=== PATIENT | male | born 1975 | race Caucasian/White ===

== ENCOUNTER 2021-07-24 10:02 | Outpatient (CLI) | payer OTHER, SELFPAY ==
[2021-07-24 10:24] LABS: Hematocrit 48.1 % (42.0-52.0); Hemoglobin 15.9 g/dL (14.0-18.0); Mean Corpuscular HGB Conc 33.1 g/dl (32-36); Mean Corpuscular Hemoglobin 31.5 pg (26-34); Mean Corpuscular Volume 95.2 fl (80-100); Mean Platelet Volume 8.4 fl (7.4-10.4); Platelet Count Result 308 k/mm3 (150-375); Red Blood Count 5.05 M/mm3 (4.6-6.20); Red Cell Distribution Width 13.3 % (11.5-14.5); White Blood Count 6.7 K/mm3 (4.5-10.0)
[2021-07-24 10:31] LABS: Add Urine Microscopic? YES; Appearance Urine Clear (Clear); Bilirubin Urine 2+ (Negative); Blood Urine Negative (Negative); Color Urine Yellow (Yellow); Glucose Urine UA Negative (Negative); Ketones Urine Negative (Negative); Leukocyte Esterase Ur Negative LEU/UL (Negative); Mucus Urine Few /lpf; Nitrate Urine Negative (Negative); Protein Urine 1+ mg/dL (Negative); Specific Grav Ur 1.021 (1.001-1.035); WBC Urine 0-3 /hpf
[2021-07-24 10:36] LABS: Alanine Aminotransferase 17 U/L (4-50); Albumin Level 4.1 g/dL (3.5-5.1); Alkaline Phosphatase 49 U/L (38-126); Anion Gap 8 mmol/L (8-16); Aspartate Amino Transferase 18 U/L (17-59); Bilirubin,Total 0.4 mg/dL (0.2-1.3); Blood Urea Nitrogen 16 mg/dL (9-20); CRP 0.7 mg/dL (<1.0); Calcium 9.3 mg/dL (8.4-10.2); Carbon Dioxide 28 mmol/L (22-30); Chloride 105 mmol/L (98-107); Estimated Glomerular Filt Rate > 60; Glucose 103 mg/dL (65-110); Potassium 4.3 mmol/L (3.4-5.0); Sodium 141 mmol/L (137-145)
[2021-07-24 10:51] LABS: Erythrocyte Sedimentation Rate 18 mm/hr (0-20)
[2021-07-24 11:53] LABS: Hepatitis B Surface Antigen Negative (Negative)
[2021-07-24 12:10] LABS: Hepatitis B Surface Anti Res Negative
[2021-07-24 12:16] LABS: Hepatitis C Virus Antibody Negative (Negative)
[2021-07-27 22:08] LABS: NIL 0.02 IU/mL; Quantiferon TB Plus, 1T NEGATIVE (NEGATIVE); TB1-NIL 0.01 IU/mL
== END 2021-07-24 10:03 | disposition home or self-care (01) ==
PROVIDERS: PCP Family Medicine; Visit Provider Internal Medicine
DX: Z11.59 Encounter for screening for other viral diseases (principal); M05.79 Rheumatoid arthritis with rheumatoid factor of multiple sites without organ or systems involvement; M19.90 Unspecified osteoarthritis, unspecified site
CPT/HCPCS: 36415; 80053; 81001; 85027; 85652; 86140; 86480; 86706; 86803; 87340

== ENCOUNTER 2021-10-20 10:47 | Outpatient (CLI) | payer OTHER, SELFPAY ==
--- NOTE | ~2021-10-20 | XR_ITS ---
EXAMINATION: XR shoulder RT min 2V EXAM DATE: 10/20/2021 11:28 INDICATION: M06.9 - Rheumatoid arthritis, unspecified, bilateral shoulder pain, left shoulder worse. TECHNIQUE: The following right shoulder projections obtained: frontal projection with internal rotati on, frontal projection with external rotation, Grashey, and scapular Y view (4+ views). Correlation i s made to contralateral shoulder same date. FINDINGS: No evidence of right shoulder rotator cuff calcific tendinosis. There is mild glenohumera l joint, mild acromioclavicular joint primary osteoarthritis. There are no acute fractures or disloca tions identified. There is no subcutaneous gas. The soft tissue is unremarkable. There are no rad iopaque foreign bodies. IMPRESSION: Mild right shoulder osteoarthritis. Reviewed, dictated and finalized at location A. TAL SALES DIRECTOR
--- NOTE | ~2021-10-20 | XR_ITS ---
EXAMINATION: XR shoulder LT min 2V EXAM DATE: 10/20/2021 11:28 INDICATION: M06.9 - Rheumatoid arthritis, unspecified, left shoulder pain. TECHNIQUE: The following left shoulder projections obtained: frontal projection with internal rotatio n, frontal projection with external rotation, Grashey, and scapular Y view (4+ views). Correlation is made to contralateral shoulder same date. FINDINGS: No evidence of left shoulder rotator cuff calcific tendinosis. There is mild glenohumera l joint, mild acromioclavicular joint primary osteoarthritis, symmetric to the contralateral side. Th ere are no acute fractures or dislocations identified. There is no subcutaneous gas. The soft tissu e is unremarkable. There are no radiopaque foreign bodies. IMPRESSION: Mild left shoulder osteoarthritis. Reviewed, dictated and finalized at location A. F TECHNICIAN X RAY
--- NOTE | ~2021-10-20 | XR_ITS ---
EXAMINATION: XR wrist LT min 3V, XR wrist RT min 3V DATE: 10/20/2021 11:28 INDICATION: Rheumatoid arthritis with pain at the first metacarpals. TECHNIQUE: 1. Posteroanterior, ulnar deviation, oblique, and lateral views of the left wrist were obtained. 2. Posteroanterior, ulnar deviation, oblique, and lateral views of the right wrist were obtained. COMPARISON: none FINDINGS: 2 mm ulnar positive variance on the left and 1-2 mm ulnar positive variance on the right . Alignment is otherwise normal at the bilateral wrists. No fractures. Joint spaces are normal. Lucency with thin sclerotic margins at the proximal pole of the capitate likely an intraosseous cyst. No cortical eros ions to suggest inflammatory arthritis. IMPRESSION: 1. Bilateral mild ulnar positive variance. Otherwise unremarkable bilateral wrist radiographs with no joint space narrowing or cortical erosions to suggest an inflammatory arthritis such as rheumatoid. Reviewed, dictated and finalized at location B. R BROKER IMPRESSION: 1. Bilateral mild ulnar positive variance. Otherwise unremarkable bilateral wri st radiographs with no joint space narrowing or cortical erosions to suggest an inflammatory arthritis such as rheumatoid.
== END 2021-10-20 10:48 | disposition home or self-care (01) ==
LOC: ANHIMG 11:02
PROVIDERS: PCP Family Medicine; Visit Provider Internal Medicine
DX: M06.9 Rheumatoid arthritis, unspecified (principal); M05.79 Rheumatoid arthritis with rheumatoid factor of multiple sites without organ or systems involvement; M19.011 Primary osteoarthritis, right shoulder; M19.012 Primary osteoarthritis, left shoulder
CPT/HCPCS: 73030; 73110

== ENCOUNTER 2021-11-27 10:35 | Outpatient (CLI) | payer OTHER, SELFPAY ==
--- NOTE | ~2021-11-27 | MR_ITS ---
EXAMINATION: MR shoulder LT wo con DATE: 11/27/2021 11:23 INDICATION: Diffuse left shoulder pain and decreased range of motion post injury one year prior TECHNIQUE: Magnetic resonance imaging (MRI) of the left shoulder was performed without intravenous co ntrast. Sequences included axial and repeated axial PD-weighted FS FSE, coronal oblique PD-weighted F S FSE and sagittal oblique T2-weighted FS FSE. The patient terminated the study due to pain prior to obtaining the sagittal T1 and coronal T2-weighted sequences. COMPARISON: Left shoulder radiographs dated 10/20/2021 FINDINGS: Limited study due to incomplete study as well as some motion artifact on the sagittal sequence. Coracoacromial arch: The acromion undersurface is curved in morphology (type II). The coracoacromial ligament is normal. M ild acromioclavicular osteoarthritis. Rotator cuff: Moderate with supraspinatus tendinopathy and mild infraspinatus and subscapularis tendinopathy withou t discrete tear. The teres minor tendon is normal. Normal rotator cuff muscle bulk and signal. Biceps tendon, glenoid labrum and glenohumeral cartilage: Long head of the biceps tendon is normal. Glenoid labrum is normal. Glenohumeral cartilage is normal. Fluid: Prominent synovitis bulging the long head biceps tendon sheath consistent with bicipital tenosynoviti s. There is also a small glenohumeral joint effusion with additional synovitis at the posterior, axil jeff and subcoracoid recesses. Finally there is a small amount of fluid with minimal synovitis at the subacromial/subdeltoid bursa consistent with mild bursitis. No loose osteochondral bodies. Bones: Prominent increased fluid signal at the posterior aspect of the humeral head near the posterior facet of the greater tuberosity but without evident Hill-Sachs fracture on the prior radiographs. Marrow s ignal is otherwise normal with no evident fracture. IMPRESSION: 1. Moderate supraspinatus tendinopathy and mild infraspinatus and subscapularis tendinopathy without discrete tear. 2. Nonspecific inflammatory changes with fluid and prominent synovitis at the glenohumeral joint spac e, the long head biceps tendon sheath as well as the subacromial/subdeltoid bursa. This would be cons istent with a previous reported history of rheumatoid arthritis. Reviewed, dictated and finalized at location A. PRODUCTION DESIGNER IMPRESSION: 1. Moderate supraspinatus tendinopathy and mild infraspinatus and subscapularis tendinopathy without discrete tear. 2. Nonspecific inflammatory changes with fluid and prominent synovitis at the g lenohumeral joint space, the long head biceps tendon sheath as well as the suba cromial/subdeltoid bursa. This would be consistent with a previous reported his tory of rheumatoid arthritis.
== END 2021-11-27 10:36 | disposition home or self-care (01) ==
LOC: ANHIMG 10:36
PROVIDERS: PCP Family Medicine; Visit Provider Internal Medicine
DX: M25.512 Pain in left shoulder (principal)
CPT/HCPCS: 73221

== ENCOUNTER 2021-12-01 10:13 | Outpatient (CLI) | payer OTHER, SELFPAY ==
[2021-12-01 10:36] LABS: Hematocrit 49.7 % (42.0-52.0); Hemoglobin 16.8 g/dL (14.0-18.0); Mean Corpuscular HGB Conc 33.8 g/dl (32-36); Mean Corpuscular Hemoglobin 31.2 pg (26-34); Mean Corpuscular Volume 92.4 fl (80-100); Mean Platelet Volume 8.4 fl (7.4-10.4); Platelet Count Result 309 k/mm3 (150-375); Red Blood Count 5.38 M/mm3 (4.6-6.20); Red Cell Distribution Width 12.8 % (11.5-14.5); White Blood Count 9.1 K/mm3 (4.5-10.0)
[2021-12-01 10:49] LABS: Alanine Aminotransferase 25 U/L (4-50); Albumin Level 4.6 g/dL (3.5-5.1); Alkaline Phosphatase 53 U/L (38-126); Anion Gap 11 mmol/L (8-16); Aspartate Amino Transferase 22 U/L (17-59); Bilirubin,Total 0.3 mg/dL (0.2-1.3); Blood Urea Nitrogen 20 mg/dL (9-20); CRP 0.8 mg/dL (<1.0); Calcium 9.5 mg/dL (8.4-10.2); Carbon Dioxide 27 mmol/L (22-30); Chloride 104 mmol/L (98-107); Estimated Glomerular Filt Rate > 60; Glucose 101 mg/dL (65-110); Potassium 4.5 mmol/L (3.4-5.0); Sodium 142 mmol/L (137-145)
[2021-12-01 11:54] LABS: Erythrocyte Sedimentation Rate 9 mm/hr (0-20)
== END 2021-12-01 10:14 | disposition home or self-care (01) ==
LOC: ANHLAB 10:18
PROVIDERS: PCP Family Medicine; Visit Provider Internal Medicine
DX: M05.79 Rheumatoid arthritis with rheumatoid factor of multiple sites without organ or systems involvement (principal); M19.90 Unspecified osteoarthritis, unspecified site
CPT/HCPCS: 36415; 80053; 84550; 85027; 85652; 86140

== ENCOUNTER 2022-01-04 09:51 | Outpatient (CLI) | payer OTHER, SELFPAY ==
--- NOTE | ~2022-01-04 | MR_ITS ---
EXAMINATION: MR hand RT wo/w con DATE: 01/04/2022 11:24 INDICATION: Rheumatoid arthritis TECHNIQUE: Magnetic resonance imaging (MRI) of the right hand was performed without and with 15 mL Mu ltihance intravenous contrast to include the metacarpals and digits. Sequences included axial, sagitt al and coronal T1-weighted FSE and T2-weighted FS FSE, axial T2-weighted FS FSE and postcontrast axia l and sagittal T2-weighted FS FSE . COMPARISON: Right wrist radiographs dated 10/20/2021 FINDINGS: Bone alignment is normal. No fracture or pathologic marrow replacing process. Large likely chronic er osion at the proximal pole of the capitate which is T2 hyperintense with diffuse internal enhancement but low signal intensity peripheral sclerotic wall. Additional smaller erosions with mild internal e nhancement at the radial aspect of the heads of the second, third and fifth metacarpals which would b e consistent with provided history of rheumatoid arthritis. Mild osteoarthritis with tiny marginal os teophytes at the triscaphe and first carpal metacarpal joints. Remaining joint spaces appear relative ly preserved. No joint effusions or enhancing synovitis. There is diffuse enhancing synovitis along t he flexor digitorum longus and brevis tendons as well as the flexor pollicis longus longus tendon bot h above and below the level of the of the carpal tunnel also likely related to rheumatoid arthritis. The tendinopathy of the of the flexor digitorum profundus and superficialis tendons to the third digi t, the flexor digitorum profundus tendon to the fourth digit which also demonstrates longitudinal spl it tearing and at the level of the bases of the metacarpals as well as of the flexor pollicis longus tendon also with likely longitudinal split tearing at the level of the distal carpal row. The collate ral ligament complexes at the metacarpophalangeal and interphalangeal joints remain normal. IMPRESSION: 1. Erosions at the capitate and heads of the second, third and fifth metacarpals and extensive enhanc ing tenosynovitis along the flexor tendons of the hand which would be consistent with the provided hi story of rheumatoid arthritis. 2. Tendinopathy to some of the flexor tendons to the first, third and fourth digits with split tearin g along the flexor pollicis longus longus and more prominently to the flexor digitorum profundus tend ons of the fourth digit. 3. Mild osteoarthritis at the triscaphe and first carpal metacarpal joints. Reviewed, dictated and finalized at location A. NEYMAN WELDER IMPRESSION: 1. Erosions at the capitate and heads of the second, third and fifth metacarpal s and extensive enhancing tenosynovitis along the flexor tendons of the hand wh ich would be consistent with the provided history of rheumatoid arthritis. 2. Tendinopathy to some of the flexor tendons to the first, third and fourth di gits with split tearing along the flexor pollicis longus longus and more promin ently to the flexor digitorum profundus tendons of the fourth digit. 3. Mild osteoarthritis at the triscaphe and first carpal metacarpal joints.
[2022-01-04 11:26] LABS: Estimated Glomerular Filt Rate > 60
== END 2022-01-04 09:52 | disposition home or self-care (01) ==
LOC: ANHIMG 09:55
PROVIDERS: PCP Family Medicine; Visit Provider Internal Medicine
DX: M06.841 Other specified rheumatoid arthritis, right hand (principal); M65.841 Other synovitis and tenosynovitis, right hand; M18.11 Unilateral primary osteoarthritis of first carpometacarpal joint, right hand
CPT/HCPCS: 73220; A9577

== ENCOUNTER 2022-03-05 10:48 | Outpatient (CLI) | payer OTHER, SELFPAY ==
[2022-03-05 11:18] LABS: Hematocrit 46.8 % (42.0-52.0); Hemoglobin 15.4 g/dL (14.0-18.0); Mean Corpuscular HGB Conc 32.9 g/dl (32-36); Mean Corpuscular Hemoglobin 31.3 pg (26-34); Mean Corpuscular Volume 95.1 fl (80-100); Mean Platelet Volume 8.7 fl (7.4-10.4); Platelet Count Result 321 k/mm3 (150-375); Red Blood Count 4.92 M/mm3 (4.6-6.20); Red Cell Distribution Width 13.1 % (11.5-14.5); White Blood Count 10.4 K/mm3 (4.5-10.0)
[2022-03-05 11:32] LABS: Alanine Aminotransferase 23 U/L (4-50); Albumin Level 4.1 g/dL (3.5-5.1); Alkaline Phosphatase 57 U/L (38-126); Anion Gap 4 mmol/L (8-16); Aspartate Amino Transferase 22 U/L (17-59); Bilirubin,Total 0.1 mg/dL (0.2-1.3); Blood Urea Nitrogen 13 mg/dL (9-20); CRP 2.4 mg/dL (<1.0); Calcium 8.8 mg/dL (8.4-10.2); Carbon Dioxide 31 mmol/L (22-30); Chloride 107 mmol/L (98-107); Estimated Glomerular Filt Rate > 60; Glucose 97 mg/dL (65-110); Potassium 4.2 mmol/L (3.4-5.0); Sodium 142 mmol/L (137-145)
[2022-03-05 12:14] LABS: Erythrocyte Sedimentation Rate 28 mm/hr (0-20)
== END 2022-03-05 10:49 | disposition home or self-care (01) ==
LOC: ANHLAB 10:49
PROVIDERS: PCP Family Medicine; Visit Provider Internal Medicine
DX: M05.79 Rheumatoid arthritis with rheumatoid factor of multiple sites without organ or systems involvement (principal); M19.90 Unspecified osteoarthritis, unspecified site
CPT/HCPCS: 36415; 80053; 85027; 85652; 86140

== ENCOUNTER 2022-06-07 09:38 | Outpatient (CLI) | payer OTHER, SELFPAY ==
[2022-06-07 10:43] LABS: Hematocrit 45.8 % (42.0-52.0); Hemoglobin 14.9 g/dL (14.0-18.0); Mean Corpuscular HGB Conc 32.5 g/dl (32-36); Mean Corpuscular Hemoglobin 30.3 pg (26-34); Mean Corpuscular Volume 93.3 fl (80-100); Platelet Count Result 359 k/mm3 (150-375); Red Blood Count 4.91 M/mm3 (4.6-6.20); White Blood Count 7.2 K/mm3 (4.5-10.0)
[2022-06-07 11:02] LABS: Appearance Urine Clear (Clear); Bilirubin Urine Negative (Negative); Blood Urine Negative (Negative); Color Urine Yellow (Yellow); Glucose Urine UA Negative (Negative); Ketones Urine Negative (Negative); Leukocyte Esterase Ur Negative LEU/UL (Negative); Nitrate Urine Negative (Negative); Urobilinogen Urine 0.2 mg/dL (<2.0); pH Urine 7.5 (5.0-9.0)
[2022-06-07 11:10] LABS: Alanine Aminotransferase 23 U/L (6-50); Albumin Level 4.4 g/dL (3.5-5.1); Alkaline Phosphatase 58 U/L (38-126); Anion Gap 11 mmol/L (8-16); Aspartate Amino Transferase 29 U/L (17-59); Bilirubin,Total 0.4 mg/dL (0.2-1.3); Blood Urea Nitrogen 12 mg/dL (9-20); CRP 0.6 mg/dL (<1.0); Calcium 9.4 mg/dL (8.4-10.2); Carbon Dioxide 26 mmol/L (22-30); Chloride 104 mmol/L (98-107); Estimated Glomerular Filt Rate > 60; Glucose 97 mg/dL (65-110); Potassium 3.9 mmol/L (3.4-5.0); Sodium 141 mmol/L (137-145)
[2022-06-07 11:11] LABS: Mucus Urine Rare /lpf; RBC Urine 0-2 /hpf (0-2); Squamous Epithelial Cell Urine Rare /hpf (Few); WBC Urine 0-3 /hpf
[2022-06-07 11:58] LABS: Add Urine Microscopic? YES
[2022-06-07 12:00] LABS: Protein Urine 1+ mg/dL (Negative)
[2022-06-07 12:43] LABS: Erythrocyte Sedimentation Rate 18 mm/hr (0-20)
== END 2022-06-07 09:39 | disposition home or self-care (01) ==
LOC: ANHLAB 09:39
PROVIDERS: PCP Family Medicine; Visit Provider Internal Medicine
DX: M05.79 Rheumatoid arthritis with rheumatoid factor of multiple sites without organ or systems involvement (principal); M19.90 Unspecified osteoarthritis, unspecified site
CPT/HCPCS: 36415; 80053; 81001; 85027; 85652; 86140

== ENCOUNTER 2022-12-17 15:43 | Outpatient (CLI) | payer OTHER, SELFPAY ==
[2022-12-17 16:47] LABS: Hematocrit 46.1 % (42.0-52.0); Hemoglobin 15.4 g/dL (14.0-18.0); Mean Corpuscular HGB Conc 33.4 g/dl (32-36); Mean Corpuscular Hemoglobin 30.7 pg (26-34); Mean Platelet Volume 9.5 fl (7.4-10.4); Platelet Count Result 377 k/mm3 (150-375); Red Blood Count 5.01 M/mm3 (4.6-6.20); Red Cell Distribution Width 13.1 % (11.5-14.5); White Blood Count 6.4 K/mm3 (4.5-10.0)
[2022-12-17 16:49] LABS: Appearance Urine Clear (Clear); Bilirubin Urine Negative (Negative); Blood Urine Negative (Negative); Color Urine Yellow (Yellow); Glucose Urine UA Negative (Negative); Ketones Urine 1+ mg/dL (Negative); Leukocyte Esterase Ur Negative LEU/UL (Negative); Nitrate Urine Negative (Negative); Protein Urine Negative (Negative); Specific Grav Ur >= 1.030 (1.001-1.035); Urobilinogen Urine 0.2 mg/dL (<2.0)
[2022-12-17 16:54] LABS: Bacteria Urine Trace /hpf; Mucus Urine Rare /lpf; RBC Urine 0-2 /hpf (0-2); Squamous Epithelial Cell Urine Rare /hpf (Few); WBC Urine 0-3 /hpf
[2022-12-17 16:55] LABS: Add Urine Microscopic? YES
[2022-12-17 17:00] LABS: Alanine Aminotransferase 33 U/L (6-50); Albumin Level 4.6 g/dL (3.5-5.1); Alkaline Phosphatase 54 U/L (38-126); Anion Gap 8 mmol/L (8-16); Aspartate Amino Transferase 30 U/L (17-59); Bilirubin,Total 0.5 mg/dL (0.2-1.3); Blood Urea Nitrogen 13 mg/dL (9-20); CRP < 0.5 mg/dL (<1.0); Calcium 9.1 mg/dL (8.4-10.2); Carbon Dioxide 24 mmol/L (22-30); Chloride 105 mmol/L (98-107); Estimated Glomerular Filt Rate > 60; Glucose 84 mg/dL (65-110); Potassium 3.6 mmol/L (3.4-5.0); Sodium 137 mmol/L (137-145)
[2022-12-17 17:40] LABS: Erythrocyte Sedimentation Rate 16 mm/hr (0-20)
== END 2022-12-17 15:44 | disposition home or self-care (01) ==
LOC: ANHLAB 15:46
PROVIDERS: PCP Family Medicine; Visit Provider Internal Medicine
DX: M05.79 Rheumatoid arthritis with rheumatoid factor of multiple sites without organ or systems involvement (principal); M19.90 Unspecified osteoarthritis, unspecified site
CPT/HCPCS: 36415; 80053; 81001; 85027; 85652; 86140

== ENCOUNTER 2023-03-07 10:30 | Outpatient (CLI) | payer OTHER, SELFPAY ==
[2023-03-07 10:57] LABS: Basophils Percent Auto 0.5 % (0.2-1.2); Eosinophils Absolute Auto 0.4 K/mm3 (0-0.3); Eosinophils Percent Auto 6.4 % (0-4.4); Hematocrit 46.8 % (42.0-52.0); Hemoglobin 15.5 g/dL (14.0-18.0); Immature Granulocyte Absolute 0.02 K/mm3 (0.00-0.031); Immature Granulocyte Percent A 0.3 % (0-0.5); Lymphocytes Absolute Auto 1.08 K/mm3 (0.9-3.2); Lymphocytes Percent Auto 18.8 % (18.3-44.2); Mean Corpuscular HGB Conc 33.1 g/dl (32-36); Mean Corpuscular Hemoglobin 30.5 pg (26-34); Mean Corpuscular Volume 91.9 fl (80-100); Monocytes Absolute Auto 0.4 K/mm3 (0.1-0.6); Monocytes Percent Auto 6.4 % (2.6-8.5); Neutrophils Absolute Auto 3.9 K/mm3 (1.3-6.7); Neutrophils Percent Auto 67.6 % (45.5-73.1); Platelet Count Result 315 k/mm3 (150-375); Red Blood Count 5.09 M/mm3 (4.6-6.20); Red Cell Distribution Width 13.1 % (11.5-14.5); White Blood Count 5.8 K/mm3 (4.5-10.0)
[2023-03-07 11:04] LABS: Appearance Urine Clear (Clear); Bilirubin Urine Negative (Negative); Blood Urine Negative (Negative); Color Urine Yellow (Yellow); Glucose Urine UA Negative (Negative); Ketones Urine Negative (Negative); Leukocyte Esterase Ur Negative LEU/UL (Negative); Nitrate Urine Negative (Negative); Protein Urine Negative (Negative); Specific Grav Ur 1.006 (1.001-1.035); Urobilinogen Urine 0.2 mg/dL (<2.0); pH Urine 5.5 (5.0-9.0)
[2023-03-07 11:08] LABS: Add Urine Microscopic? NO
[2023-03-07 11:11] LABS: Alanine Aminotransferase 40 U/L (6-50); Albumin Level 4.4 g/dL (3.5-5.1); Alkaline Phosphatase 44 U/L (38-126); Anion Gap 5 mmol/L (8-16); Aspartate Amino Transferase 34 U/L (17-59); Bilirubin,Total 0.5 mg/dL (0.2-1.3); Blood Urea Nitrogen 10 mg/dL (9-20); CRP < 0.5 mg/dL (<1.0); Calcium 8.8 mg/dL (8.4-10.2); Carbon Dioxide 27 mmol/L (22-30); Chloride 107 mmol/L (98-107); Estimated Glomerular Filt Rate > 60; Glucose 111 mg/dL (65-110); Potassium 4.1 mmol/L (3.4-5.0); Sodium 139 mmol/L (137-145)
[2023-03-07 11:13] LABS: Complement C3 137 mg/dL (88-165)
[2023-03-07 11:13] LABS: Creatinine Urine 53.9 mg/dL; Total Protein Urine Random 10 mg/dL; Ur Ttl Prot Creatinine Ratio 0.19 mg/mg (0-0.20)
[2023-03-07 11:26] LABS: Erythrocyte Sedimentation Rate 22 mm/hr (0-20)
== END 2023-03-07 10:31 | disposition home or self-care (01) ==
LOC: ANHLAB 10:36
PROVIDERS: PCP Nurse Practitioner Family; Visit Provider Internal Medicine
DX: M05.79 Rheumatoid arthritis with rheumatoid factor of multiple sites without organ or systems involvement (principal); M19.90 Unspecified osteoarthritis, unspecified site
CPT/HCPCS: 36415; 80053; 81003; 82570; 84156; 85025; 85652; 86140; 86160

== ENCOUNTER 2023-07-11 09:52 | Outpatient (CLI) | payer OTHER, SELFPAY ==
[2023-07-11 10:24] LABS: Hemoglobin 14.2 g/dL (14.0-18.0); Mean Corpuscular Hemoglobin 30.1 pg (26-34); Mean Corpuscular Volume 91.3 fl (80-100); Mean Platelet Volume 9.3 fl (7.4-10.4); Platelet Count Result 272 k/mm3 (150-375); Red Blood Count 4.71 M/mm3 (4.6-6.20); Red Cell Distribution Width 12.6 % (11.5-14.5); White Blood Count 4.9 K/mm3 (4.5-10.0)
[2023-07-11 10:24] LABS: Appearance Urine Clear (Clear); Bilirubin Urine Negative (Negative); Blood Urine Negative (Negative); Color Urine Yellow (Yellow); Glucose Urine UA Negative (Negative); Ketones Urine Negative (Negative); Leukocyte Esterase Ur Negative LEU/UL (Negative); Nitrate Urine Negative (Negative); Protein Urine Negative (Negative); Urobilinogen Urine 0.2 mg/dL (<2.0); pH Urine 5.5 (5.0-9.0)
[2023-07-11 10:41] LABS: Add Urine Microscopic? NO
[2023-07-11 10:48] LABS: Alanine Aminotransferase 46 U/L (6-50); Albumin Level 4.3 g/dL (3.5-5.1); Alkaline Phosphatase 48 U/L (38-126); Anion Gap 5 mmol/L (8-16); Aspartate Amino Transferase 38 U/L (17-59); Bilirubin,Total 0.5 mg/dL (0.2-1.3); Blood Urea Nitrogen 18 mg/dL (9-20); CRP < 0.5 mg/dL (<1.0); Calcium 9.2 mg/dL (8.4-10.2); Carbon Dioxide 27 mmol/L (22-30); Chloride 106 mmol/L (98-107); Estimated Glomerular Filt Rate > 60; Glucose 98 mg/dL (65-110); Potassium 4.4 mmol/L (3.4-5.0); Sodium 138 mmol/L (137-145)
[2023-07-11 10:54] LABS: Erythrocyte Sedimentation Rate 35 mm/hr (0-20)
== END 2023-07-11 09:53 | disposition home or self-care (01) ==
PROVIDERS: PCP Nurse Practitioner Family; Visit Provider Internal Medicine
DX: M05.79 Rheumatoid arthritis with rheumatoid factor of multiple sites without organ or systems involvement (principal); M19.90 Unspecified osteoarthritis, unspecified site
CPT/HCPCS: 36415; 80053; 81003; 85027; 85652; 86140

== ENCOUNTER 2023-10-21 10:11 | Outpatient (CLI) | payer OTHER, SELFPAY ==
[2023-10-21 10:41] LABS: Hematocrit 44.7 % (42.0-52.0); Hemoglobin 14.3 g/dL (14.0-18.0); Mean Corpuscular Volume 93.7 fl (80-100); Mean Platelet Volume 9.2 fl (7.4-10.4); Platelet Count Result 336 k/mm3 (150-375); Red Blood Count 4.77 M/mm3 (4.6-6.20); Red Cell Distribution Width 13.2 % (11.5-14.5); White Blood Count 5.7 K/mm3 (4.5-10.0)
[2023-10-21 10:43] LABS: Appearance Urine Clear (Clear); Bilirubin Urine Negative (Negative); Blood Urine Negative (Negative); Color Urine Yellow (Yellow); Glucose Urine UA Negative (Negative); Ketones Urine Negative (Negative); Leukocyte Esterase Ur Negative LEU/UL (Negative); Nitrate Urine Negative (Negative); Protein Urine Negative (Negative); Specific Grav Ur 1.016 (1.001-1.035); Urobilinogen Urine 0.2 mg/dL (<2.0); pH Urine 5.5 (5.0-9.0)
[2023-10-21 10:47] LABS: Add Urine Microscopic? NO
[2023-10-21 10:55] LABS: Alanine Aminotransferase 53 U/L (6-50); Albumin Level 4.1 g/dL (3.5-5.1); Alkaline Phosphatase 46 U/L (38-126); Anion Gap 6 mmol/L (8-16); Aspartate Amino Transferase 45 U/L (17-59); Bilirubin,Total 0.5 mg/dL (0.2-1.3); Blood Urea Nitrogen 13 mg/dL (9-20); CRP < 0.5 mg/dL (<1.0); Calcium 8.9 mg/dL (8.4-10.2); Carbon Dioxide 26 mmol/L (22-30); Chloride 108 mmol/L (98-107); Estimated Glomerular Filt Rate > 60; Glucose 99 mg/dL (65-110); Sodium 140 mmol/L (137-145)
[2023-10-21 11:25] LABS: Erythrocyte Sedimentation Rate 22 mm/hr (0-20)
== END 2023-10-21 10:12 | disposition home or self-care (01) ==
PROVIDERS: PCP Nurse Practitioner Family; Visit Provider Internal Medicine
DX: M05.79 Rheumatoid arthritis with rheumatoid factor of multiple sites without organ or systems involvement (principal); M19.90 Unspecified osteoarthritis, unspecified site
CPT/HCPCS: 36415; 80053; 81003; 85027; 85652; 86140

== ENCOUNTER 2024-02-07 09:22 | Outpatient (CLI) | payer OTHER, SELFPAY ==
[2024-02-07 09:44] LABS: Hematocrit 48.2 % (42.0-52.0); Hemoglobin 15.6 g/dL (14.0-18.0); Mean Corpuscular HGB Conc 32.4 g/dl (32-36); Mean Corpuscular Hemoglobin 30.5 pg (26-34); Mean Corpuscular Volume 94.3 fl (80-100); Mean Platelet Volume 8.9 fl (7.4-10.4); Platelet Count Result 330 k/mm3 (150-375); Red Blood Count 5.11 M/mm3 (4.6-6.20); Red Cell Distribution Width 13.1 % (11.5-14.5); White Blood Count 6.9 K/mm3 (4.5-10.0)
[2024-02-07 09:46] LABS: Appearance Urine Clear (Clear); Bilirubin Urine Negative (Negative); Blood Urine Negative (Negative); Color Urine Yellow (Yellow); Glucose Urine UA Negative (Negative); Ketones Urine Negative (Negative); Leukocyte Esterase Ur Negative LEU/UL (Negative); Nitrate Urine Negative (Negative); Protein Urine Negative (Negative); Specific Grav Ur 1.016 (1.001-1.035); Urobilinogen Urine 0.2 mg/dL (<2.0); pH Urine 5.5 (5.0-9.0)
[2024-02-07 09:49] LABS: Add Urine Microscopic? NO
[2024-02-07 10:01] LABS: Alanine Aminotransferase 42 U/L (6-50); Albumin Level 4.4 g/dL (3.5-5.1); Alkaline Phosphatase 44 U/L (38-126); Anion Gap 8 mmol/L (4-12); Aspartate Amino Transferase 38 U/L (17-59); Bilirubin,Total 0.4 mg/dL (0.2-1.3); Blood Urea Nitrogen 13 mg/dL (9-20); CRP < 0.5 mg/dL (<1.0); Calcium 9.7 mg/dL (8.4-10.2); Carbon Dioxide 26 mmol/L (22-30); Chloride 107 mmol/L (98-107); Estimated Glomerular Filt Rate > 60; Glucose 96 mg/dL (65-110); Potassium 4.5 mmol/L (3.4-5.0); Sodium 141 mmol/L (137-145)
[2024-02-07 10:15] LABS: Erythrocyte Sedimentation Rate 20 mm/hr (0-20)
== END 2024-02-07 09:23 | disposition home or self-care (01) ==
LOC: ANHLAB 09:23
PROVIDERS: Visit Provider Internal Medicine
DX: M05.79 Rheumatoid arthritis with rheumatoid factor of multiple sites without organ or systems involvement (principal); M19.90 Unspecified osteoarthritis, unspecified site
CPT/HCPCS: 36415; 80053; 81003; 85027; 85652; 86140